=== PATIENT | male | born 1990 | race Hispanic/Latino ===

== ENCOUNTER 2017-10-24 19:19 | Emergency (ER) | payer SELFPAY ==
[2017-10-24 20:20] VITALS: BP 112/73; PULSE 119; O2SAT 98
--- NOTE | 2017-10-24 20:38 | C.PDOC ---
History Of Present Illness 27 year old male presents to the ER with a complaint of fever, nausea, body aches, cough, and sore throat since yesterday. reports family member is sick at home with flu. patient has not had flu vaccine. he tried OTC cold medicine without any relief. Time Seen by Provider: 10/24/17 20:27 Chief Complaint (Nursing): Flu-like Symptoms History Per: Patient History/Exam Limitations: no limitations Onset/Duration Of Symptoms: Days Current Symptoms Are (Timing): Still Present Location Of Pain: Throat, Diffuse Myalgias Sick Contacts (Context): None Associated Symptoms: Fever, Sore Throat, Cough, Myalgias, Nausea Ear Symptoms: Bilateral: None Recent travel outside of the [place]: No Past Medical History Reviewed: Historical Data, Nursing Documentation, Vital Signs Vital Signs: Last Vital Signs Temp 99.9 F H 10/24/17 21:17 Pulse 119 H 10/24/17 20:16 Resp 20 10/24/17 21:16 BP 112/73 10/24/17 20:16 Pulse Ox 98 10/24/17 21:32 - Medical History PMH: No Chronic Diseases Surgical History: No Surg Hx - [facility] INJECT/INFUSE NEC (12/29/14) Family History: States: Unknown Family Hx - Social History Hx Alcohol Use: No Hx Substance Use: No Review Of Systems Constitutional: Positive for: Fever ENT: Positive for: Throat Pain. Negative for: Ear Pain, Ear Discharge Respiratory: Positive for: Cough Gastrointestinal: Positive for: Nausea. Negative for: Vomiting Musculoskeletal: Positive for: Other (Body aches) Physical Exam - Physical Exam Appears: Non-toxic, No Acute Distress Skin: Normal Color, Warm, Dry, No Rash Head: Atraumatic, Normacephalic Eye(s): bilateral: Normal Inspection, PERRL, EOMI Ear(s): Bilateral: Normal (no erythema) Nose: Normal Oral Mucosa: Moist Throat: Normal, No Erythema, No Exudate Neck: Normal, Supple Chest: Symmetrical, No Tenderness Cardiovascular: Rhythm Regular, No Murmur Respiratory: Normal Breath Sounds, No Rales, No Rhonchi, No Wheezing Gastrointestinal/Abdominal: Soft, No Tenderness Extremity: Bilateral: Atraumatic, Normal Color And Temperature, Normal ROM Neurological/Psych: Oriented x3, Normal Speech Gait: Steady ED Course And Treatment O2 Sat by Pulse Oximetry: 98 Medical Decision Making Medical Decision Making: Patient with fever and multi-symptom complaints. Patient has sick contacts at home with similar symptoms. Patient has not received Flu vaccine this season. Based on history, exam findings and widespread influenza will treat for Influenza. Patient appears non-toxic and in no distress. Rx given. Patient advised to rest, drink fluids and take medications for supportive treatment. Patient stable for discharge and given follow up instructions. Disposition Counseled Patient/Family Regarding: Diagnosis, Need For Followup, Rx Given - Disposition Referrals: [facility] [Outside] [facility] [Outside] Disposition: HOME/ ROUTINE Disposition Time: 20:47 Condition: STABLE Additional Instructions: You have influenza. Take Tamiflu twice a day for 5 days. Take Tylenol or Motrin alternating every 4-6 hours for Fever 100.4F or higher. Rest and drink plenty of fluids. Try symptomatic relief. Symptoms can last 7-10 days. Follow up with your primary medical doctor or clinic in 2-5 days for further evaluation. Return to the emergency department at any time if symptoms persist or worsen. Prescriptions: Benzonatate [Tessalon Perles] 100 mg PO TID #30 sgl Oseltamivir [Tamiflu] 75 mg PO BID #9 cap Instructions: Influenza (ED) Forms: [facility] ([place]) - POA Present On Arrival: None - Clinical Impression Clinical Impression: Influenza - PA / RAND SEWER / Resident Statement MD/DO has reviewed & agrees with the documentation as recorded. - Scribe Statement The provider has reviewed the documentation as recorded by the Scribyunier Kay All medical record entries made by the Amyibyunier were at my direction and personally dictated by me. I have reviewed the chart and agree that the record accurately reflects my personal performance of the history, physical exam, medical decision making, and the department course for this patient. I have also personally directed, reviewed, and agree with the discharge instructions and disposition.
[2017-10-24 21:17] VITALS: RESP 20; TEMP 99.9
== END 2017-10-24 21:16 | disposition home or self-care (01) ==
LOC: C.ER 19:19
DX: J11.1 Influenza due to unidentified influenza virus with other respiratory manifestations (principal)